=== PATIENT | female | born 1945 ===

== ENCOUNTER → 2024-12-13 | Outpatient (CLI) | payer MEDICARE | END | disposition home or self-care (01) | LOC: Rad HDHVI 14:56 | PROVIDERS: ATTEND Internal Medicine Cardiovascular Disease | DX: R23.0 Cyanosis (principal) | CPT/HCPCS: 93925 ==

== ENCOUNTER → 2024-12-21 | Outpatient (CLI) | payer MEDICARE ==
[2024-12-21 10:35] VITALS: BP 152/73; PULSE 71; RESP 18; O2SAT 96
[2024-12-21] MEDS: MEROPENEM 1GM IVPB 50 ML IV ONE ×2 (10:41→10:45)
[2024-12-21 11:44] VITALS: BP 141/96; PULSE 69; RESP 18; O2SAT 96
== END | disposition home or self-care (01) ==
LOC: CHF HDHVI 10:31
PROVIDERS: ATTEND Internal Medicine Cardiovascular Disease
DX: L03.116 Cellulitis of left lower limb (principal)
CPT/HCPCS: 96365; G0463; J2185

== ENCOUNTER → 2024-12-22 | Outpatient (CLI) | payer MEDICARE ==
[2024-12-22 10:54] VITALS: BP 135/74; PULSE 74; RESP 16; O2SAT 97
[2024-12-22] MEDS: MEROPENEM 1GM IVPB 50 ML IV ONE ×2 (11:03→11:05)
[2024-12-22 12:10] VITALS: BP 127/76; PULSE 70; RESP 17; O2SAT 96
== END | disposition home or self-care (01) ==
LOC: CHF HDHVI 10:50
PROVIDERS: ATTEND Internal Medicine Cardiovascular Disease
DX: L03.116 Cellulitis of left lower limb (principal)
CPT/HCPCS: 96365; G0463; J2185

== ENCOUNTER → 2024-12-25 | Outpatient (CLI) | payer MEDICARE ==
[2024-12-25 11:00] VITALS: BP 135/65; PULSE 69; RESP 16; O2SAT 96
[2024-12-25] MEDS: MEROPENEM 1GM IVPB 50 ML IV ONE ×2 (11:05→11:11)
[2024-12-25 12:15] VITALS: BP 138/69; PULSE 70; RESP 16; O2SAT 96
== END | disposition home or self-care (01) ==
LOC: CHF HDHVI 10:57
PROVIDERS: ATTEND Internal Medicine Cardiovascular Disease
DX: J06.9 Acute upper respiratory infection, unspecified (principal); L03.116 Cellulitis of left lower limb
CPT/HCPCS: 96365; G0463; J2185

== ENCOUNTER → 2024-12-26 | Outpatient (CLI) | payer MEDICARE ==
[2024-12-26 10:59] VITALS: BP 153/79; PULSE 70; RESP 16; O2SAT 100
[2024-12-26] MEDS: MEROPENEM 1GM IVPB 50 ML IV ONE ×2 (11:05→11:09)
[2024-12-26 12:21] VITALS: BP 149/89; PULSE 83; RESP 16; O2SAT 100
== END | disposition home or self-care (01) ==
LOC: CHF HDHVI 10:55
PROVIDERS: ATTEND Internal Medicine Cardiovascular Disease
DX: J06.9 Acute upper respiratory infection, unspecified (principal); L03.116 Cellulitis of left lower limb; L03.115 Cellulitis of right lower limb
CPT/HCPCS: 96365; G0463; J2185

== ENCOUNTER → 2024-12-27 | Outpatient (CLI) | payer MEDICARE ==
[2024-12-27 10:50] VITALS: BP 134/77; PULSE 72; RESP 18; O2SAT 99
[2024-12-27] MEDS: MEROPENEM 1GM IVPB 50 ML IV ONE ×2 (10:56→10:57)
[2024-12-27 12:36] VITALS: BP 144/79; PULSE 65; RESP 18; O2SAT 99
== END | disposition home or self-care (01) ==
LOC: CHF HDHVI 10:46
PROVIDERS: ATTEND Internal Medicine Cardiovascular Disease
DX: J06.9 Acute upper respiratory infection, unspecified (principal); L03.116 Cellulitis of left lower limb; L03.115 Cellulitis of right lower limb
CPT/HCPCS: 96365; G0463; J2185

== ENCOUNTER → 2024-12-29 | Outpatient (CLI) | payer MEDICARE ==
[2024-12-29 11:49] VITALS: BP 133/78; PULSE 71; RESP 20; O2SAT 97
[2024-12-29] MEDS: MEROPENEM 1GM IVPB 50 ML IV ONE ×2 (12:05→12:07)
[2024-12-29 13:11] VITALS: BP 141/79; PULSE 65; RESP 20; O2SAT 97
== END | disposition home or self-care (01) ==
LOC: CHF HDHVI 11:44
PROVIDERS: ATTEND Internal Medicine Cardiovascular Disease
DX: J06.9 Acute upper respiratory infection, unspecified (principal); I11.9 Hypertensive heart disease without heart failure
CPT/HCPCS: 96365; G0463; J2185

== ENCOUNTER 2025-07-06 10:15 | Outpatient (CLI) | payer MEDICARE ==
[2025-07-06 10:13] VITALS: BP 141/78; PULSE 81; RESP 16; O2SAT 97
[2025-07-06] MEDS: POTASSIUM CHL 10 Meq TABLET PO ONE (10:35)
[2025-07-06] MEDS: MEROPENEM 1GM IVPB 100 ML IV ONE (10:36)
[2025-07-06] MEDS: FUROSEMIDE 40 MG/4 ML VIAL ONE (10:36)
[2025-07-06] MEDS: MEROPENEM 1GM IVPB 50 ML IV ONE ×2 (10:42→11:40)
[2025-07-06] MEDS: FUROSEMIDE 100 MG/10ML VIAL IV ONE (12:47)
[2025-07-06] MEDS: POTASSIUM CHL 20 Meq TABLET PO ONE (12:50)
[2025-07-06 12:55] VITALS: BP 155/84; PULSE 68; RESP 16; O2SAT 97
== END 2025-07-06 17:00 | disposition home or self-care (01) ==
LOC: CHF HDHVI 10:15
PROVIDERS: ATTEND Internal Medicine Cardiovascular Disease
DX: L03.113 Cellulitis of right upper limb (principal); I11.9 Hypertensive heart disease without heart failure; R60.9 Edema, unspecified
CPT/HCPCS: 96365; 96366; 96375; G0463; J1938; J2185

== ENCOUNTER 2025-07-09 09:46 | Outpatient (CLI) | payer MEDICARE ==
[2025-07-09 09:50] VITALS: BP 168/76; PULSE 76; RESP 16; O2SAT 98
[2025-07-09] MEDS: MEROPENEM 1GM IVPB 100 ML IV ONE (10:03)
[2025-07-09] MEDS: MEROPENEM 1GM IVPB 50 ML IV ONE ×2 (10:07→11:00)
[2025-07-09 12:21] VITALS: BP 123/64; PULSE 74; RESP 16; O2SAT 98
[2025-07-10] MEDS ORDERED: MEROPENEM 1GM IVPB 100 ML IV ONE (09:37)
== END 2025-07-09 17:00 | disposition home or self-care (01) ==
LOC: CHF HDHVI 09:46
PROVIDERS: ATTEND Internal Medicine Cardiovascular Disease
DX: L03.113 Cellulitis of right upper limb (principal); I11.9 Hypertensive heart disease without heart failure
CPT/HCPCS: 96365; 96366; G0463; J2185

== ENCOUNTER 2025-07-10 09:32 | Outpatient (CLI) | payer MEDICARE ==
[2025-07-10 09:40] VITALS: BP 138/77; PULSE 75; RESP 18; O2SAT 97
[2025-07-10] MEDS: MEROPENEM 1GM IVPB 50 ML IV ONE ×2 (10:13→11:15)
[2025-07-10 12:25] VITALS: BP 146/76; PULSE 65; RESP 18; O2SAT 97
[2025-07-11] MEDS: MEROPENEM 1GM IVPB 100 ML IV ONE (10:48)
== END 2025-07-10 17:00 | disposition home or self-care (01) ==
LOC: CHF HDHVI 09:32
PROVIDERS: ATTEND Internal Medicine Cardiovascular Disease
DX: L03.113 Cellulitis of right upper limb (principal); I11.9 Hypertensive heart disease without heart failure; R60.9 Edema, unspecified
CPT/HCPCS: 96365; 96366; G0463; J2185

== ENCOUNTER 2025-07-11 09:46 | Outpatient (CLI) | payer MEDICARE ==
[2025-07-11 09:45] VITALS: BP 147/74; PULSE 76; RESP 16; O2SAT 96
[2025-07-11] MEDS: MEROPENEM 1GM IVPB 100 ML IV ONE (10:07)
[2025-07-11] MEDS: MEROPENEM 1GM IVPB 50 ML IV ONE ×2 (10:10→11:00)
[2025-07-11 12:18] VITALS: BP 123/69; PULSE 67; RESP 16; O2SAT 97
== END 2025-07-11 17:00 | disposition home or self-care (01) ==
LOC: CHF HDHVI 09:46
PROVIDERS: ATTEND Internal Medicine Cardiovascular Disease
DX: L03.113 Cellulitis of right upper limb (principal); I11.9 Hypertensive heart disease without heart failure; R60.9 Edema, unspecified
CPT/HCPCS: 96365; 96366; G0463; J2185

== ENCOUNTER 2025-07-13 09:29 | Outpatient (CLI) | payer MEDICARE ==
[~2025-07-13] VITALS: Ht 30.5 cm; Wt 0.5 kg
[2025-07-13 09:32] VITALS: BP 147/81; PULSE 77; RESP 18; O2SAT 97
[2025-07-13] MEDS: MEROPENEM 1GM IVPB 100 ML IV ONE (09:44)
[2025-07-13] MEDS: FUROSEMIDE INJECTION 10 ML ONE (09:44)
[2025-07-13] MEDS: POTASSIUM CHL 10 Meq TABLET PO ONE (09:44)
[2025-07-13] MEDS: MEROPENEM 1GM IVPB 50 ML IV ONE ×2 (09:52→11:00)
[2025-07-13] MEDS: FUROSEMIDE 100 MG/10ML VIAL IV ONE (12:05)
[2025-07-13] MEDS: POTASSIUM CHL 20 Meq TABLET PO ONE (12:18)
[2025-07-13 12:19] VITALS: BP 162/96; PULSE 81; RESP 18; O2SAT 97
== END 2025-07-13 17:00 | disposition home or self-care (01) ==
LOC: CHF HDHVI 09:29
PROVIDERS: ATTEND Internal Medicine Cardiovascular Disease
DX: L03.113 Cellulitis of right upper limb (principal); I11.9 Hypertensive heart disease without heart failure; R60.9 Edema, unspecified
CPT/HCPCS: 96365; 96366; 96375; G0463; J1938; J2185

== ENCOUNTER 2025-07-20 10:01 | Outpatient (CLI) | payer MEDICARE ==
[2025-07-20 10:09] VITALS: BP 152/82; PULSE 72; RESP 16; O2SAT 96
[2025-07-20] MEDS: FUROSEMIDE 100 MG/10ML VIAL IV ONE (10:37)
[2025-07-20] MEDS: FUROSEMIDE INJECTION 10 ML ONE (10:38)
[2025-07-20] MEDS: POTASSIUM CHL 10 Meq TABLET PO ONE (10:38)
[2025-07-20] MEDS: POTASSIUM CHL 20 Meq TABLET PO ONE (10:40)
[2025-07-20 10:53] VITALS: BP 148/91; PULSE 76; RESP 16; O2SAT 96
== END 2025-07-20 17:00 | disposition home or self-care (01) ==
LOC: CHF HDHVI 10:01
PROVIDERS: ATTEND Internal Medicine Cardiovascular Disease
DX: I11.9 Hypertensive heart disease without heart failure (principal); R60.9 Edema, unspecified; L03.113 Cellulitis of right upper limb
CPT/HCPCS: 96374; G0463; J1938

== ENCOUNTER 2025-08-01 10:04 | Outpatient (CLI) | payer MEDICARE ==
[2025-08-01 10:12] VITALS: BP 150/69; PULSE 74; RESP 16; O2SAT 97
[2025-08-01] MEDS: POTASSIUM CHL 10 Meq TABLET PO ONE (10:17)
[2025-08-01] MEDS: FUROSEMIDE INJECTION 10 ML ONE (10:17)
[2025-08-01] MEDS: FUROSEMIDE 100 MG/10ML VIAL IV ONE (10:24)
[2025-08-01] MEDS: POTASSIUM CHL 20 Meq TABLET PO ONE (10:28)
[2025-08-01 10:48] VITALS: BP 143/83; PULSE 74; RESP 16; O2SAT 97
== END 2025-08-01 17:00 | disposition home or self-care (01) ==
LOC: CHF HDHVI 10:04
PROVIDERS: ATTEND Internal Medicine Cardiovascular Disease
DX: I11.9 Hypertensive heart disease without heart failure (principal); R60.9 Edema, unspecified; L03.113 Cellulitis of right upper limb
CPT/HCPCS: 96374; G0463; J1938

== ENCOUNTER 2025-08-15 09:56 | Outpatient (CLI) | payer MEDICARE ==
[~2025-08-15] VITALS: Ht 33 cm; Wt 0.5 kg
[2025-08-15 10:00] VITALS: BP 147/94; PULSE 74; RESP 16; O2SAT 98
[2025-08-15] MEDS: FUROSEMIDE INJECTION 10 ML ONE (10:06)
[2025-08-15] MEDS: POTASSIUM CHL 10 Meq TABLET PO ONE (10:06)
[2025-08-15] MEDS: FUROSEMIDE 100 MG/10ML VIAL IV ONE (10:11)
[2025-08-15] MEDS: POTASSIUM CHL 20 Meq TABLET PO ONE (10:12)
[2025-08-15 10:25] VITALS: BP 145/79; PULSE 69; RESP 16; O2SAT 98
== END 2025-08-15 17:00 | disposition home or self-care (01) ==
LOC: CHF HDHVI 09:56
PROVIDERS: ATTEND Internal Medicine Cardiovascular Disease
DX: I11.9 Hypertensive heart disease without heart failure (principal); R60.9 Edema, unspecified; L03.113 Cellulitis of right upper limb
CPT/HCPCS: 96374; G0463; J1938

== ENCOUNTER 2025-08-22 09:59 | Outpatient (CLI) | payer MEDICARE ==
[2025-08-22 10:22] VITALS: BP 139/72; PULSE 71; RESP 17; O2SAT 95
[2025-08-22] MEDS: POTASSIUM CHL 10 Meq TABLET PO ONE (10:50)
[2025-08-22] MEDS: FUROSEMIDE INJECTION 10 ML ONE (10:50)
[2025-08-22] MEDS: POTASSIUM CHL 20 Meq TABLET PO ONE (10:50)
[2025-08-22] MEDS: FUROSEMIDE 100 MG/10ML VIAL IV ONE (10:53)
[2025-08-22 11:00] VITALS: BP 149/83; PULSE 70; RESP 18; O2SAT 97
== END 2025-08-22 17:00 | disposition home or self-care (01) ==
LOC: CHF HDHVI 09:59
PROVIDERS: ATTEND Internal Medicine Cardiovascular Disease
DX: I11.9 Hypertensive heart disease without heart failure (principal); R60.9 Edema, unspecified; L03.113 Cellulitis of right upper limb
CPT/HCPCS: 96374; G0463; J1938

== ENCOUNTER 2025-08-29 10:01 | Outpatient (CLI) | payer MEDICARE ==
[2025-08-29 10:05] VITALS: BP 156/66; PULSE 78; RESP 18; O2SAT 98
[2025-08-29] MEDS: POTASSIUM CHL 10 Meq TABLET PO ONE (10:18)
[2025-08-29] MEDS: FUROSEMIDE 100 MG/10ML VIAL IV ONE (10:18)
[2025-08-29] MEDS: FUROSEMIDE INJECTION 10 ML ONE (10:18)
[2025-08-29] MEDS: POTASSIUM CHL 20 Meq TABLET PO ONE (10:20)
[2025-08-29 10:32] VITALS: BP 149/89; PULSE 79; RESP 16; O2SAT 98
== END 2025-08-29 17:00 | disposition home or self-care (01) ==
LOC: CHF HDHVI 10:01
PROVIDERS: ATTEND Internal Medicine Cardiovascular Disease
DX: I11.9 Hypertensive heart disease without heart failure (principal); R60.9 Edema, unspecified; L03.113 Cellulitis of right upper limb
CPT/HCPCS: 96374; G0463; J1938

== ENCOUNTER 2025-10-10 09:20 | Outpatient (CLI) | payer MEDICARE ==
[2025-10-10 09:25] VITALS: BP 123/69; PULSE 71; RESP 16; O2SAT 99
[2025-10-10] MEDS: POTASSIUM CHL 10 Meq TABLET PO ONE (09:47)
[2025-10-10] MEDS: FUROSEMIDE INJECTION 10 ML ONE (09:47)
[2025-10-10] MEDS: FUROSEMIDE 100 MG/10ML VIAL IV ONE (09:58)
[2025-10-10] MEDS: POTASSIUM CHL 20 Meq TABLET PO ONE (09:59)
[2025-10-10 10:09] VITALS: BP 140/85; PULSE 81; RESP 16; O2SAT 100
== END 2025-10-10 17:00 | disposition home or self-care (01) ==
LOC: CHF HDHVI 09:20
PROVIDERS: ATTEND Internal Medicine Cardiovascular Disease
DX: I11.9 Hypertensive heart disease without heart failure (principal); R60.9 Edema, unspecified; L03.113 Cellulitis of right upper limb
CPT/HCPCS: 96374; G0463; J1938

== ENCOUNTER 2025-10-17 09:55 | Outpatient (CLI) | payer MEDICARE ==
[2025-10-17 10:13] VITALS: BP 139/70; PULSE 81; RESP 17; O2SAT 96
[2025-10-17] MEDS: FUROSEMIDE 100 MG/10ML VIAL IV ONE (10:20)
[2025-10-17] MEDS: POTASSIUM CHL 20 Meq TABLET PO ONE (10:22)
[2025-10-17] MEDS: POTASSIUM CHL 10 Meq TABLET PO ONE (10:23)
[2025-10-17] MEDS: FUROSEMIDE INJECTION 10 ML ONE (10:23)
[2025-10-17 10:37] VITALS: BP 124/63; PULSE 98; RESP 17; O2SAT 96
== END 2025-10-17 17:00 | disposition home or self-care (01) ==
LOC: CHF HDHVI 09:55
PROVIDERS: ATTEND Internal Medicine Cardiovascular Disease
DX: I11.9 Hypertensive heart disease without heart failure (principal); R60.9 Edema, unspecified; L03.113 Cellulitis of right upper limb
CPT/HCPCS: 96374; G0463; J1938

== ENCOUNTER 2025-10-29 10:01 | Outpatient (CLI) | payer MEDICARE ==
[2025-10-29 10:05] VITALS: BP 138/73; PULSE 79; RESP 16; O2SAT 99
[2025-10-29] MEDS ORDERED: MEROPENEM 1GM IVPB 50 ML IV ONE (10:05)
[2025-10-29] MEDS: POTASSIUM CHL 10 Meq TABLET PO ONE (10:33)
[2025-10-29] MEDS: MEROPENEM 1GM IVPB 50 ML IV ONE ×3 (10:33→11:39)
[2025-10-29] MEDS: FUROSEMIDE INJECTION 10 ML ONE (10:33)
[2025-10-29] MEDS: FUROSEMIDE 100 MG/10ML VIAL IV ONE (12:45)
[2025-10-29] MEDS: POTASSIUM CHL 20 Meq TABLET PO ONE (12:47)
[2025-10-29 13:00] VITALS: BP 134/89; PULSE 74; RESP 16; O2SAT 98
== END 2025-10-29 17:00 | disposition home or self-care (01) ==
LOC: CHF HDHVI 10:01
PROVIDERS: ATTEND Internal Medicine Cardiovascular Disease
DX: L03.113 Cellulitis of right upper limb (principal); R60.9 Edema, unspecified; I11.9 Hypertensive heart disease without heart failure
CPT/HCPCS: 96365; 96366; 96375; G0463; J1938; J2185